=== PATIENT | female | born 1975 | race Caucasian/White ===

== ENCOUNTER 2019-08-18 07:02 | Inpatient (IN) | payer SELFPAY ==
[2019-08-18 10:11] LABS: APPEARANCE,URINE CLEAR; BILIRUBIN,URINE NEGATIVE (NEGATIVE); COLOR,URINE YELLOW; GLUCOSE, URINE NEGATIVE (NEGATIVE); KETONES,URINE 20 mg/dL (NEGATIVE); LEUKOCYTE ESTERASE,URINE TRACE (NEGATIVE); NITRITE,URINE NEGATIVE (NEGATIVE); PROTEIN,URINE NEGATIVE (NEGATIVE); URINE SPECIFIC GRAVITY 1.006; UROBILINOGEN,URINE NEGATIVE mg/dL (<2.0)
[2019-08-18 10:23] LABS: ABSOLUTE BASOPHILS # (AUTO) 0.1 10^3/uL (0.0-0.2); ABSOLUTE EOSINOPHILS # (AUTO) 0.1 10^3/uL (0.0-0.6); ABSOLUTE LYMPHOCYTES (AUTO) 1.1 10^3/uL (0.5-4.7); ABSOLUTE MONOCYTES (AUTO) 0.7 10^3/uL (0.1-1.4); ABSOLUTE NEUT (AUTO) 7.7 10^3/uL (1.7-8.2); EOSINOPHILS % (AUTO) 0.9 % (0-6); HEMATOCRIT 36.9 % (36.0-47.0); HEMOGLOBIN 13.1 g/dL (12.0-15.5); LYMPHOCYTES % (AUTO) 11.1 % (13-45); MEAN CORPUSCULAR HEMOGLOBIN 29.7 pg (27.0-33.4); MEAN CORPUSCULAR HGB CONC 35.6 g/dL (32.0-36.0); MEAN CORPUSCULAR VOLUME 83 fl (80-97); MONOCYTES % (AUTO) 7.5 % (3-13); PLATELET COUNT 227 10^3/uL (150-450); RED BLOOD COUNT 4.43 10^6/uL (3.72-5.28); RED CELL DISTRIBUTION WIDTH 14.9 % (11.5-14.0); SEGMENTED NEUTROPHILS % (AUTO) 79.5 % (42-78); TOTAL CELLS COUNTED % (AUTO) 100 %; WHITE BLOOD COUNT 9.7 10^3/uL (4.0-10.5)
[2019-08-18] MEDS ORDERED: KETOROLAC TROMETHAMINE INJ/PF 30 MG/1 ML SDV IV ONE (10:48)
[2019-08-18] MEDS ORDERED: VANCOMYCIN HCL INJ 1000 MG VIAL IV ONE (10:48)
[2019-08-18] MEDS ORDERED: PIPERACILLIN/TAZOBACTAM 3.375 GM VIAL IV ONE (10:48)
[2019-08-18 10:50] LABS: ALBUMIN 4.2 g/dL (3.5-5.0); ALKALINE PHOSPHATASE 87 U/L (38-126); ANION GAP 15 (5-19); ASPARTATE AMINO TRANSFERASE 44 U/L (14-36); BILIRUBIN,DIRECT 0.4 mg/dL (0.0-0.4); BILIRUBIN,TOTAL 1.1 mg/dL (0.2-1.3); BLOOD UREA NITROGEN 8 mg/dL (7-20); CALCIUM 9.1 mg/dL (8.4-10.2); CARBON DIOXIDE 19 mmol/L (22-30); CHLORIDE 102 mmol/L (98-107); GLUCOSE 99 mg/dL (75-110); POTASSIUM 3.6 mmol/L (3.6-5.0); TOTAL PROTEIN 7.5 g/dL (6.3-8.2)
--- NOTE | 2019-08-18 10:53 | ER Document Report ---
ED General - General Chief Complaint: Abscess Stated Complaint: POSSIBLE ARM ABSCESS Time Seen by Provider: 08/18/19 10:04 TRAVEL OUTSIDE OF THE [place] IN LAST 30 DAYS: No - HPI Notes: 43-year-old female IV drug abuser with a chief complaint of pain swelling and redness of antecubital area bilaterally where she has been injecting herself. Denies fever, chills nausea, or vomiting. Patient is visiting here from the state of [place] and has no local physician. States that she has been injecting IV cocaine. She denies any hallucinations or any suicidal or homicidal ideation. - Related Data Allergies/Adverse Reactions: tramadol [Tramadol] Allergy (Mild, Verified 08/18/19 07:37) Hives clindamycin [Clindamycin] Allergy (Verified 08/18/19 07:37) Home Medications: cymbalta 60 mg. latuda 30 mg. trazodone 100 mg Past Medical History - General Information source: Patient - Social History Smoking Status: Current Every Day Smoker Chew tobacco use (# tins/day): No Frequency of alcohol use: Social Drug Abuse: Cocaine Family History: Malignancy - ovarian cancer- mother Patient has suicidal ideation: No Patient has homicidal ideation: No - Past Medical History Cardiac Medical History: Reports: Hx Hypertension Psychiatric Medical History: Reports: Hx Bipolar Disorder, Hx Depression Past Surgical History: Reports: Hx Abdominal Surgery - gastric sleeve, Hx Gynecologic Surgery - Benign tumor removal from left overy, Hx Hysterectomy - complete, Hx Orthopedic Surgery - bilat carpal tunnel - Immunizations Hx Diphtheria, Pertussis, Tetanus Vaccination: Yes Review of Systems - Review of Systems Notes: Constitutional: Negative for fever. HENT: Negative for sore throat. Eyes: Negative for visual changes. Cardiovascular: Negative for chest pain. Respiratory: Negative for shortness of breath. Gastrointestinal: Negative for abdominal pain, vomiting or diarrhea. Genitourinary: Negative for dysuria. Musculoskeletal: Negative for back pain. Skin: As per HPI. Neurological: Negative for headaches, weakness or numbness. 10 point ROS negative except as marked above and in HPI. Physical Exam - Vital signs Vitals: Temp Pulse Resp BP Pulse Ox 99.1 F 91 18 164/96 H 99 08/18/19 07:07 08/18/19 07:07 08/18/19 07:07 08/18/19 07:07 08/18/19 07:07 - Notes Notes: GENERAL: Mildly obese female appearing approximately her stated age who is tearful and uncomfortable. She does not appear toxic. SKIN: Redness and warmth of antecubital area bilaterally. Patient also has an area of redness over the medial malleolus on the left. These are all injection sites. Patient has some needle tracks present.. HEAD: Normocephalic atraumatic. EYES: PERRLA. EOMI. Conjunctivae and sclerae clear. EARS: CANALS AND TMS CLEAR. NOSE: CLEAR. MOUTH: Moist mucosa. Good dentition. No stridor or edema. No drooling. NECK: Supple. No masses or thyromegaly. No adenopathy. Carotids 2+ without bruits. No JVD. BACK: Symmetrical without tenderness. CHEST: Respirations unlabored. Breath sounds clear and symmetrical. HEART: Regular rhythm. No murmur gallop or rub. ABDOMEN: Soft nontender without masses, organomegaly or rebound. Bowel sounds normally active. No bruits. GENITALIA: Deferred. EXTREMITIES: Soft tissue swelling in the antecubital fossa bilaterally with some associated warmth and questionable fluctuance.. No calf tenderness. Cap refill less than 1.5 seconds. Dorsalis pedis and posterior tibial pulses 3+ and symmetrical. NEUROLOGICAL: GCS 15. Alert and oriented x3. Normal gait. Fluent speech. Cranial nerves II through XII intact. Sensorimotor and cerebellar normal. Normal tone. PSYCHIATRIC: Anxious affect. Course - Re-evaluation Re-evalutation: 08/18/19 10:52 I am going to empirically administer IV vancomycin and Zosyn. I have requested plain films of the antecubital area bilaterally to rule out retained foreign body (broken needle). We will also get ultrasound of the area bilaterally to determine if there is something here that is drainable at this time. 08/18/19 14:33 Ultrasound confirms abscess formation bilaterally in the antecubital fossa. Patient does not have any foreign body present on plain films. Ultrasound also suggests that she may have a septic thrombophlebitis of the median cubital vein on the right. Patient has been accepted for admission to the hospitalist service by Dr. Meliton Marie. I have also consulted Dr. Hernandez from surgery regarding surgical drainage of abscess bilaterally and antecubital area. - Vital Signs Vital signs: Temp Pulse Resp BP Pulse Ox 99.1 F 91 18 164/96 H 99 08/18/19 07:07 08/18/19 07:07 08/18/19 07:07 08/18/19 07:07 08/18/19 07:07 - Laboratory Result Diagrams: 08/18/19 10:00 08/18/19 10:00 Laboratory results interpreted by me: 08/18/19 08/18/19 08/18/19 09:24 10:00 10:00 RDW 14.9 H Lymph % (Auto) 11.1 L Seg Neutrophils % 79.5 H Sodium 135.7 L Carbon Dioxide 19 L AST 44 H Urine Ketones 20 H Ur Leukocyte Esterase TRACE H - Diagnostic Test Radiology reviewed: Reports reviewed - Patient has bilateral abscess formation with free air in the tissue planes in the area of the bilateral antecubital fossae. She also has evidence of thrombosis of the median cubital vein on the right. Discharge - Discharge Clinical Impression: Antecubital abscess bilateral, IV drug abuse, Septic thrombophlebitis of upper extremities Condition: Serious Disposition: ADMITTED INPATIENT Admitting Provider: Frank (Hospitalist) Unit Admitted: Medical Floor
--- NOTE | 2019-08-18 12:07 | RADIOLOGY REPORT (SQ) ---
EXAM DESCRIPTION: ELBOW BILATERAL 2 VIEWS MIN COMPLETED DATE/TIME: 08/18/2019 10:27 am REASON FOR STUDY: pain/swelling; r/o FB COMPARISON: None. NUMBER OF VIEWS: Four views. TECHNIQUE: AP, lateral, and both oblique radiographic images acquired of the left elbow. LIMITATIONS: None. FINDINGS: MINERALIZATION: Normal. BONES: No acute fracture or dislocation. No worrisome bone lesions. JOINT: There is no joint effusion. SOFT TISSUES: There is subcutaneous gas in the antecubital fossa. No radiopaque foreign body. OTHER: No other significant finding. IMPRESSION: Subcutaneous gas in the antecubital fossa of the left elbow. No radiopaque foreign body . No radiographic abnormality of the elbow joint or bones. TECHNICAL DOCUMENTATION: JOB ID: [id number] [employer]- All Rights Reserved Reading location - IP/workstation name: [email or web address]
[2019-08-18 12:54] LABS: URINE BARBITURATES SCREEN NEGATIVE; URINE BENZODIAZEPINES SCREEN NEGATIVE; URINE METHADONE SCREEN NEGATIVE; URINE PHENCYCLIDINE SCREEN NEGATIVE
[2019-08-18 13:04] LABS: URINE COCAINE SCREEN UNCONFIRMED POSITIVE; URINE MARIJUANA (THC) SCREEN UNCONFIRMED POSITIVE
--- NOTE | 2019-08-18 13:19 | RADIOLOGY REPORT (SQ) ---
EXAM DESCRIPTION: U/S EXTREMITY NONVASCULAR LTD COMPLETED DATE/TIME: 08/18/2019 1:00 pm REASON FOR STUDY: pain, swelling- r/o abscess bilateral COMPARISON: None. TECHNIQUE: Static and real time masters scale ultrasound Doppler spectral analysis, and color Doppler a cquired in the RIGHT AND LEFT ANTECUBITAL FOSSA LIMITATIONS: None. FINDINGS: In the right antecubital fossa, a 3.4 x 3.3 x 1.5 cm abscess is present with air bubbles j ust deep to the skin surface. This is adjacent to a thrombosed median cubital vein. Septic thrombop hlebitis is suspected. In the left antecubital fossa, a 2.8 x 2.5 x 3 cm abscess is present with few air bubbles deep to the skin surface. Median cubital vein was not identified. IMPRESSION: Bilateral antecubital fossa abscesses with air bubbles TECHNICAL DOCUMENTATION: JOB ID: [id number] [employer]- All Rights Reserved Reading location - IP/workstation name: [email or web address]
[2019-08-18] MEDS ORDERED: KETOROLAC TROMETHAMINE INJ/PF 30 MG/1 ML SDV IV PRN (15:01)
[2019-08-18] MEDS ORDERED: VANCOMYCIN HCL 0 MG in DEXTROSE 5%-WATER 250 ML IV NR (15:15)
[2019-08-18] MEDS ORDERED: NORMAL SALINE 1000 ML 2,000 ML IV ONE (15:22)
--- NOTE | 2019-08-18 15:59 | PDOC H&P ---
History of Present Illness Admission Date/PCP: 08/18/19 15:06 Patient complains of: Bilateral elbow pain with swelling and right ankle redness and swelling History of Present Illness: DANII SHEIKH is a 43 year old female, morbidly obese, with a history of marshal jeanette abuse, who presents emergency room with bilateral antecubital fossa swelling and redness with pain as well as right medial ankle redness swelling and pain. The patient has undergone an ultrasound of both antecubital fossa which identified the presence of bilateral abscess with air bubbles as well as an x-ray of the left elbow which demonstrates the presence of subcutaneous gas. Her white blood cell count is normal. Past Medical History Cardiac Medical History: Reports: Hypertension Psychiatric Medical History: Reports: Bipolar Disorder, Depression Past Surgical History Past Surgical History: Reports: Hysterectomy - complete, Orthopedic Surgery - bilat carpal tunnel Social History Smoking Status: Current Every Day Smoker Electronic Cigarette use?: No Family History Family History: Malignancy - ovarian cancer- mother Parental Family History Reviewed: No Children Family History Reviewed: No Sibling(s) Family History Reviewed.: No Medication/Allergy Home Medications: Duloxetine HCl [Cymbalta] 60 mg PO DAILY 08/18/19 Lurasidone HCl [Latuda] 30 mg PO DAILY 08/18/19 Trazodone HCl 100 mg PO QHS 08/18/19 Allergies/Adverse Reactions: tramadol [Tramadol] Allergy (Mild, Verified 08/18/19 07:37) Hives clindamycin [Clindamycin] Allergy (Verified 08/18/19 07:37) Physical Exam Vital Signs: Temp Pulse Resp BP Pulse Ox 99.1 F 91 18 164/96 H 99 08/18/19 07:07 08/18/19 07:07 08/18/19 07:07 08/18/19 07:07 08/18/19 07:07 Intake & Output 08/17/19 08/18/19 08/19/19 06:59 06:59 06:59 Weight 107.6 kg General appearance: PRESENT: mild distress, obese Head exam: PRESENT: atraumatic, normocephalic Eye exam: PRESENT: EOMI Mouth exam: PRESENT: moist, neck supple Neck exam: PRESENT: full ROM Cardiovascular exam: PRESENT: RRR GI/Abdominal exam: PRESENT: soft Rectal exam: PRESENT: deferred Extremities exam: PRESENT: full ROM, other - Erythema, swelling, subcutaneous fluctuation, and tenderness on palpation identified on both antecubital fossa; right medial malleolar area continues erythema with tenderness to palpation Musculoskeletal exam: PRESENT: ambulatory, full ROM Neurological exam: PRESENT: alert, awake, oriented to time, CN II-XII grossly intact Psychiatric exam: PRESENT: agitated, depressed Skin exam: PRESENT: other - See above Results Laboratory Results: 08/18/19 10:00 08/18/19 10:00 08/18/19 08/18/19 08/18/19 09:24 10:00 10:00 WBC 9.7 RBC 4.43 Hgb 13.1 Hct 36.9 MCV 83 MCH 29.7 MCHC 35.6 RDW 14.9 H Plt Count 227 Seg Neutrophils % 79.5 H Sodium 135.7 L Potassium 3.6 Chloride 102 Carbon Dioxide 19 L Anion Gap 15 BUN 8 Creatinine 0.71 Est GFR ( Amer) > 60 Glucose 99 Calcium 9.1 Total Bilirubin 1.1 AST 44 H Alkaline Phosphatase 87 Total Protein 7.5 Albumin 4.2 Urine Color YELLOW Urine Appearance CLEAR Urine pH 6.0 Ur Specific [place] 1.006 Urine Protein NEGATIVE Urine Glucose (UA) NEGATIVE Urine Ketones 20 H Urine Blood NEGATIVE Urine Nitrite NEGATIVE Ur Leukocyte Esterase TRACE H Urine WBC (Auto) 5 Urine RBC (Auto) 2 Impressions: Elbow X-Ray 08/18/19 10:44 IMPRESSION: Subcutaneous gas in the antecubital fossa of the left elbow. No radiopaque foreign body. No radiographic abnormality of the elbow joint or bones. Extremity Ultrasound 08/18/19 10:45 IMPRESSION: Bilateral antecubital fossa abscesses with air bubbles Assessment & Plan - Diagnosis (1) bilateral antecubital fossa abscess Is this a current diagnosis for this admission?: Yes (2) R medail malleolar subcutaneous abscess Is this a current diagnosis for this admission?: Yes - Plan Summary Plan Summary: Assessment: History of IV drug abuse (cocaine) Bilateral antecubital fossa abscesses with subcutaneous gas as per ultrasound and x-ray Bilateral tubal fossa erythema, edema, and pain with subcutaneous fluctuation history of subcutaneous abscess Right malleolar cellulitis, tenderness, possible abscess WBC normal Plan: Incision and drainage of bilateral antecubital fossa abscess as well as right medial malleolar subcutaneous abscess Procedure, risks, benefits, complications, alternatives, discussed with the patient, she understands all the above, her questions were answered, and she decides to proceed Vancomycin and Zosyn IV antibiotics preop Admission to follow
[2019-08-18] MEDS ORDERED: METHYLENE BLUE 50 MG/10 ML AMPULE ONE (16:05)
[2019-08-18] MEDS ORDERED: DEXTROSE 50%-WATER 25 GM/50 ML DISP.SYRIN IV PRN ×4 (16:55→19:08)
[2019-08-18] MEDS ORDERED: GLUCAGON,HUMAN RECOMB 1 MG INJ SUBCUT PRN ×2 (16:55→19:08)
[2019-08-18] MEDS ORDERED: DEXTROSE 40% GEL 15 GM TUBE PO PRN ×4 (16:55→19:08)
[2019-08-18] MEDS: ACETAMINOPHEN 1,000 MG/100 ML RTUPB IV SCH ×2 (17:41→23:23)
--- NOTE | 2019-08-18 18:01 | PDOC H&P ---
History of Present Illness Admission Date/PCP: 08/18/19 15:06 History of Present Illness: DANII SHEIKH is a 43 year old female with a history of IV drug use who is from [place] and is here for some reason, and has been injecting cocaine. She injects in both antecubital spaces, her hands, her ankles and her feet. She noticed a swelling that started yesterday and her left arm and again today in her right arm. She has an area of redness on the right ankle but is not swollen. She is not been running a fever. She came to the emergency department to be evaluated and ultrasound confirmed that she has bilateral antecubital abscesses, and it also looks like she is got a superficial thrombosis in the median cubital vein on the right side. She will be started on antibiotics and surgery will be consulted. Past Medical History Cardiac Medical History: Reports: Hypertension Psychiatric Medical History: Reports: Bipolar Disorder, Depression Past Surgical History Past Surgical History: Reports: Hysterectomy - complete, Orthopedic Surgery - bilat carpal tunnel Social History Smoking Status: Current Every Day Smoker Electronic Cigarette use?: No Family History Family History: Malignancy - ovarian cancer- mother Parental Family History Reviewed: Yes Children Family History Reviewed: NA Sibling(s) Family History Reviewed.: Yes Medication/Allergy Home Medications: Duloxetine HCl [Cymbalta] 60 mg PO DAILY 08/18/19 Lurasidone HCl [Latuda] 30 mg PO DAILY 08/18/19 Trazodone HCl 100 mg PO QHS 08/18/19 Allergies/Adverse Reactions: tramadol [Tramadol] Allergy (Mild, Verified 08/18/19 07:37) Hives clindamycin [Clindamycin] Allergy (Verified 08/18/19 07:37) Review of Systems All systems: reviewed and no additional remarkable complaints except as stated - All systems were reviewed and were negative except as noted in the HPI Physical Exam Vital Signs: Temp Pulse Resp BP Pulse Ox 98.8 F 84 18 145/81 H 99 08/18/19 16:09 08/18/19 16:09 08/18/19 16:09 08/18/19 16:09 08/18/19 16:09 Intake & Output 08/17/19 08/18/19 08/19/19 06:59 06:59 06:59 Weight 107.6 kg General appearance: PRESENT: no acute distress, cooperative, disheveled, morbidly obese Head exam: PRESENT: atraumatic, normocephalic Eye exam: PRESENT: EOMI, PERRLA. ABSENT: conjunctival injection, nystagmus, scleral icterus Ear exam: PRESENT: normal external ear exam Mouth exam: PRESENT: moist, neck supple Throat exam: ABSENT: post pharyngeal erythema Neck exam: PRESENT: full ROM. ABSENT: carotid bruit, JVD, lymphadenopathy, m eningismus, tenderness, thyromegaly Respiratory exam: PRESENT: clear to auscultation truman, symmetrical, unlabored. ABSENT: accessory muscle use, chest wall tenderness, crackles, prolonged expiratory phas, rales, retraction, rhonchi, tachypnea, wheezes Cardiovascular exam: PRESENT: RRR, +S1, +S2 Pulses: PRESENT: normal carotid pulses Vascular exam: PRESENT: normal capillary refill GI/Abdominal exam: PRESENT: normal bowel sounds, soft. ABSENT: distended, guarding, rebound, tenderness Extremities exam: PRESENT: other - She has pronounced areas of swelling and induration in the antecubital spaces of both elbows with an area of central erythema. She has track prasad in both antecubital spaces, the backs of both of her hands, on both ankles medially, and on the dorsal aspect of both feet Musculoskeletal exam: PRESENT: normal inspection. ABSENT: deformity Neurological exam: PRESENT: alert, awake, oriented to person, oriented to place, oriented to time, oriented to situation, CN II-XII grossly intact. ABSENT: motor sensory deficit Psychiatric exam: PRESENT: anxious Skin exam: PRESENT: dry, warm Results Laboratory Results: 08/18/19 10:00 08/18/19 10:00 08/18/19 08/18/19 08/18/19 09:24 10:00 10:00 WBC 9.7 RBC 4.43 Hgb 13.1 Hct 36.9 MCV 83 MCH 29.7 MCHC 35.6 RDW 14.9 H Plt Count 227 Seg Neutrophils % 79.5 H Sodium 135.7 L Potassium 3.6 Chloride 102 Carbon Dioxide 19 L Anion Gap 15 BUN 8 Creatinine 0.71 Est GFR ( Amer) > 60 Glucose 99 Calcium 9.1 Total Bilirubin 1.1 AST 44 H Alkaline Phosphatase 87 Total Protein 7.5 Albumin 4.2 Urine Color YELLOW Urine Appearance CLEAR Urine pH 6.0 Ur Specific [place] 1.006 Urine Protein NEGATIVE Urine Glucose (UA) NEGATIVE Urine Ketones 20 H Urine Blood NEGATIVE Urine Nitrite NEGATIVE Ur Leukocyte Esterase TRACE H Urine WBC (Auto) 5 Urine RBC (Auto) 2 Impressions: Elbow X-Ray 08/18/19 10:44 IMPRESSION: Subcutaneous gas in the antecubital fossa of the left elbow. No radiopaque foreign body. No radiographic abnormality of the elbow joint or bones. Extremity Ultrasound 08/18/19 10:45 IMPRESSION: Bilateral antecubital fossa abscesses with air bubbles Assessment and Plan - Diagnosis (1) IVDU (intravenous drug user) Is this a current diagnosis for this admission?: Yes (2) bilateral antecubital fossa abscess Is this a current diagnosis for this admission?: Yes (3) Superficial thrombophlebitis of right upper extremity Is this a current diagnosis for this admission?: Yes - Plan Summary Summary: She is being started on broad-spectrum antibiotic therapy. Blood cultures are pending. If they are positive, she will have to have a transesophageal echocard iogram. Surgery has been consulted for incision and drainage and obtaining of fluid for cultures. - Time Time Spent with patient: 35 or more minutes - Inpatient Certification Based on my medical assessment, after consideration of the patient's comorbidities, presenting symptoms, or acuity I expect that the services needed warrant INPATIENT care.: Yes I certify that my determination is in accordance with my understanding of Medicare's requirements for reasonable and necessary INPATIENT services [42 CFR 412.3e].: Yes Medical Necessity: Need for IV Antibiotics, Need for Surgery
[2019-08-18] MEDS: NORMAL SALINE 1000 ML 1,000 ML IV PRN (19:01)
[2019-08-18] MEDS: VANCOMYCIN HCL 1,250 MG in DEXTROSE 5%-WATER 250 ML IV SCH (19:02)
--- NOTE | 2019-08-18 19:37 | EKG REPORT ---
SEVERITY:- ABNORMAL ECG - SINUS RHYTHM PROBABLE POSTERIOR INFARCT : Confirmed by: Deb Bucio MD 18-Aug-2019 19:36:11
[2019-08-18] MEDS ORDERED: LURASIDONE HCL 30 MG PO SCH (22:00)
[2019-08-18] MEDS: MEROPENEM 1 GM in NORMAL SALINE 50 ML IV SCH (22:05)
[2019-08-18] MEDS: TRAZODONE HCL 50 MG TABLET PO SCH (22:08)
[2019-08-18] MEDS: DULOXETINE HCL 30 MG CAPSULE.DR PO SCH (22:08)
[2019-08-18] MEDS: LURASIDONE HCL 60 MG TABLET PO SCH (22:08)
[2019-08-19] MEDS: VANCOMYCIN HCL 1,250 MG in DEXTROSE 5%-WATER 250 ML IV SCH ×3 (01:06→17:47)
[2019-08-19] MEDS: ACETAMINOPHEN 1,000 MG/100 ML RTUPB IV SCH ×4 (05:24→23:15)
[2019-08-19] MEDS: MEROPENEM 1 GM in NORMAL SALINE 50 ML IV SCH ×3 (05:33→21:49)
[2019-08-19 05:56] LABS: HEMATOCRIT 36.3 % (36.0-47.0); HEMOGLOBIN 12.8 g/dL (12.0-15.5); MEAN CORPUSCULAR HGB CONC 35.4 g/dL (32.0-36.0); MEAN CORPUSCULAR VOLUME 85 fl (80-97); RED BLOOD COUNT 4.29 10^6/uL (3.72-5.28); RED CELL DISTRIBUTION WIDTH 14.9 % (11.5-14.0); WHITE BLOOD COUNT 12.3 10^3/uL (4.0-10.5)
[2019-08-19 06:14] LABS: ANION GAP 12 (5-19); BLOOD UREA NITROGEN 9 mg/dL (7-20); CALCIUM 8.7 mg/dL (8.4-10.2); CARBON DIOXIDE 21 mmol/L (22-30); CHLORIDE 105 mmol/L (98-107); GLUCOSE 105 mg/dL (75-110); POTASSIUM 3.5 mmol/L (3.6-5.0)
[2019-08-19 06:56] LABS: PLATELET COUNT 195 10^3/uL (150-450)
[2019-08-19] MEDS: NORMAL SALINE 1000 ML 1,000 ML IV PRN ×2 (09:48→21:49)
--- NOTE | 2019-08-19 16:15 | PDOC PROGRESS REPORT ---
Subjective Progress Note for:: 08/19/19 Subjective:: No adverse events overnight. No new complaints. Vital signs been stable. Blood cultures are negative overnight. She is n.p.o. awaiting incision and drainage of her bilateral antecubital abscesses. Reason For Visit: BILATERAL ANTECUBITAL ABSCESSES Physical Exam Vital Signs: Temp Pulse Resp BP Pulse Ox 98.1 F 77 20 111/71 97 08/19/19 12:00 08/19/19 12:00 08/19/19 12:00 08/19/19 12:00 08/19/19 12:00 Intake & Output 08/18/19 08/19/19 08/20/19 06:59 06:59 06:59 Intake Total 3976 727 Balance 3976 727 Weight 101.2 kg General appearance: PRESENT: no acute distress, cooperative, disheveled, morbidly obese Respiratory exam: PRESENT: clear to auscultation truman, symmetrical, unlabored. ABSENT: accessory muscle use, chest wall tenderness, crackles, prolonged expiratory phas, rales, retraction, rhonchi, tachypnea, wheezes Cardiovascular exam: PRESENT: RRR, +S1, +S2 Pulses: PRESENT: normal carotid pulses Vascular exam: PRESENT: normal capillary refill GI/Abdominal exam: PRESENT: normal bowel sounds, soft. ABSENT: distended, guarding, rebound, tenderness Extremities exam: PRESENT: other - She has pronounced areas of swelling and induration in the antecubital spaces of both elbows with an area of central erythema. She has track prasad in both antecubital spaces, the backs of both of her hands, on both ankles medially, and on the dorsal aspect of both feet Musculoskeletal exam: PRESENT: normal inspection. ABSENT: deformity Neurological exam: PRESENT: alert, awake, oriented to person, oriented to place, oriented to time, oriented to situation Results Laboratory Results: 08/19/19 05:21 08/19/19 05:21 08/19/19 08/19/19 05:21 05:21 WBC 12.3 H RBC 4.29 Hgb 12.8 Hct 36.3 MCV 85 MCH 30.0 MCHC 35.4 RDW 14.9 H Plt Count 195 Sodium 137.6 Potassium 3.5 L Chloride 105 Carbon Dioxide 21 L Anion Gap 12 BUN 9 Creatinine 0.68 Est GFR ( Amer) > 60 Glucose 105 Calcium 8.7 Impressions: Elbow X-Ray 08/18/19 10:44 IMPRESSION: Subcutaneous gas in the antecubital fossa of the left elbow. No radiopaque foreign body. No radiographic abnormality of the elbow joint or bones. Extremity Ultrasound 08/18/19 10:45 IMPRESSION: Bilateral antecubital fossa abscesses with air bubbles Assessment and Plan - Diagnosis (1) IVDU (intravenous drug user) Is this a current diagnosis for this admission?: Yes (2) bilateral antecubital fossa abscess Is this a current diagnosis for this admission?: Yes (3) Superficial thrombophlebitis of right upper extremity Is this a current diagnosis for this admission?: Yes - Plan Summary Summary: She continues on broad-spectrum antibiotic therapy. Blood cultures are pending. If they are positive, she will have to have a transesophageal echocardiogram. Surgery has been consulted for incision and drainage and obtaining of fluid for cultures. - Time Time Spent with patient: 15-24 minutes
[2019-08-19] MEDS ORDERED: PROPOFOL INJ 200 MG/20 ML VIAL IV ONE (18:04)
[2019-08-19] MEDS ORDERED: FENTANYL CITRATE INJ/PF 100 MCG/2 ML AMPUL ONE (18:04)
[2019-08-19] MEDS ORDERED: MIDAZOLAM 2 MG/2 ML INJ ONE (18:04)
[2019-08-19] MEDS ORDERED: BUPIVACAINE HCL 0.5%/EPI 1:200000 INJ 1.8 ML CARTRIDGE ONE (18:47)
[2019-08-19] MEDS ORDERED: LIDOCAINE 1% INJ-PF (10 MG/ML) 30 ML SDV ONE (18:47)
[2019-08-19] MEDS ORDERED: BUPIVACAINE HCL 0.5%-EPI 1:200000 INJ/PF 30 ML VIAL ONE (18:48)
[2019-08-19] MEDS ORDERED: LIDOCAINE 1%/EPINEPHRINE INJ 20 ML VIAL ONE (18:49)
[2019-08-19] MEDS ORDERED: BACITRACIN ZINC OINTMENT 15 GM ONE (19:01)
[2019-08-19 19:08] LABS: VANCOMYCIN,TROUGH 9.2 ug/mL (5.0-20.0)
--- NOTE | 2019-08-19 19:51 | Operative Report ---
Nonrecallable Operative Report DATE OF SURGERY: 08/19/19 PREOPERATIVE DIAGNOSIS: Right and left anterior antecubital fossa abscess, right medial malleolar abscess with cellulitis POSTOPERATIVE DIAGNOSIS: Right and left antecubital fossa abscess; right medial malleolar cellulitis OPERATION: Incision and drainage of right and left antecubital fossa; attempted drainage of right medial malleolar area SURGEON: JAK BALL ANESTHESIA: Other - 30 mL's of 1% lidocaine TISSUE REMOVED OR ALTERED: Pus collection of the right and left antecubital fossa abscess COMPLICATIONS: None ESTIMATED BLOOD LOSS: Less than 5 mL's INTRAOPERATIVE FINDINGS: Abscess cavity located in the right and left antecubital area; cellulitis of the right / medial malleolus PROCEDURE: The procedure was done in the operating room, the patient was placed in a supine position, the area of each abscess was prepped and draped in usual fashion. The proposed line of incision was outlined with a surgical marker, an S shaped skin incision was then made with a #15 blade, over each antecubital fossa and a moderate amount of pus was obtained. This was sent for aerobic anaerobic culture and Gram stain. The incision was then extended further. After this, a finger or hempostat was inserted inside each wound and the internal septations were disrupted so to make one single cavity. Following this, the abscess cavity was irrigated with normal saline. Local bleeders were cauterized. The abscess cavity was packed with triple antibiotic soaked sponge, covered with dry 4 x 4's, ABDs, Kerlix roll, and Lakhwinder bandage. Finally, a vertical incision was made to the right medial malleoli are, no purulent collection was identified, the area was packed and dressed similarly to the antecubital areas. The patient tolerated procedure well and transferred to the recovery room in satisfactory conditions.
[2019-08-19] MEDS: LURASIDONE HCL 60 MG TABLET PO SCH (21:45)
[2019-08-19] MEDS: DULOXETINE HCL 30 MG CAPSULE.DR PO SCH (21:45)
[2019-08-19] MEDS: TRAZODONE HCL 50 MG TABLET PO SCH (21:45)
[2019-08-20] MEDS: VANCOMYCIN HCL 1,250 MG in DEXTROSE 5%-WATER 250 ML IV SCH ×3 (01:28→18:05)
[2019-08-20] MEDS: ACETAMINOPHEN 1,000 MG/100 ML RTUPB IV SCH ×4 (05:44→23:28)
[2019-08-20] MEDS: MORPHINE SULFATE 10 MG/ML INJ IV PRN ×4 (05:49→19:31)
[2019-08-20 06:15] LABS: HEMATOCRIT 34.1 % (36.0-47.0); HEMOGLOBIN 11.9 g/dL (12.0-15.5); MEAN CORPUSCULAR HEMOGLOBIN 29.9 pg (27.0-33.4); MEAN CORPUSCULAR VOLUME 86 fl (80-97); PLATELET COUNT 195 10^3/uL (150-450); RED BLOOD COUNT 3.98 10^6/uL (3.72-5.28); RED CELL DISTRIBUTION WIDTH 15.3 % (11.5-14.0); WHITE BLOOD COUNT 7.3 10^3/uL (4.0-10.5)
[2019-08-20 06:39] LABS: ANION GAP 8 (5-19); BLOOD UREA NITROGEN 7 mg/dL (7-20); CALCIUM 8.3 mg/dL (8.4-10.2); CARBON DIOXIDE 24 mmol/L (22-30); CHLORIDE 107 mmol/L (98-107); GLUCOSE 91 mg/dL (75-110); POTASSIUM 3.7 mmol/L (3.6-5.0)
[2019-08-20] MEDS: MEROPENEM 1 GM in NORMAL SALINE 50 ML IV SCH ×3 (06:48→21:25)
[2019-08-20] MEDS: NORMAL SALINE 1000 ML 1,000 ML IV PRN ×2 (06:49→18:06)
[2019-08-20] MEDS ORDERED: BACITRACIN ZINC OINTMENT 15 GM TP SCH (10:00)
--- NOTE | 2019-08-20 12:12 | PDOC PROGRESS REPORT ---
Subjective Progress Note for:: 08/20/19 Subjective:: feels better Reason For Visit: BILATERAL ANTECUBITAL ABSCESSES Physical Exam Vital Signs: Temp Pulse Resp BP Pulse Ox 98.2 F 63 16 147/65 H 92 08/20/19 07:19 08/20/19 07:19 08/20/19 07:19 08/20/19 07:19 08/20/19 07:19 Intake & Output 08/19/19 08/20/19 08/21/19 06:59 06:59 06:59 Intake Total 3976 4839 50 Output Total 0 Balance 3976 4839 50 Weight 101.2 kg 109.5 kg General appearance: PRESENT: no acute distress Head exam: PRESENT: normocephalic Eye exam: PRESENT: EOMI Ear exam: PRESENT: normal external ear exam Mouth exam: PRESENT: dry mucosa Teeth exam: PRESENT: poor dentation Neck exam: PRESENT: full ROM Respiratory exam: PRESENT: clear to auscultation truman Cardiovascular exam: PRESENT: RRR Pulses: PRESENT: normal radial pulses, normal femoral pulses GI/Abdominal exam: PRESENT: soft Rectal exam: PRESENT: deferred Extremities exam: PRESENT: other - Both the right and left antecubital fossa h ave been surgically debrided the wound beds are clean with granulation tissue there is no evidence of any further purulence or necrosis Results Laboratory Results: 08/20/19 05:08 08/20/19 05:08 08/20/19 08/20/19 05:08 05:08 WBC 7.3 RBC 3.98 Hgb 11.9 L Hct 34.1 L MCV 86 MCH 29.9 MCHC 35.0 RDW 15.3 H Plt Count 195 Sodium 139.2 Potassium 3.7 Chloride 107 Carbon Dioxide 24 Anion Gap 8 BUN 7 Creatinine 0.64 Est GFR ( Amer) > 60 Glucose 91 Calcium 8.3 L Impressions: Elbow X-Ray 08/18/19 10:44 IMPRESSION: Subcutaneous gas in the antecubital fossa of the left elbow. No radiopaque foreign body. No radiographic abnormality of the elbow joint or bones. Extremity Ultrasound 08/18/19 10:45 IMPRESSION: Bilateral antecubital fossa abscesses with air bubbles Assessment & Plan - Time Time Spent with patient: 35 or more minutes - Plan Summary Plan Summary: Impression both antecubital abscesses are been drained and no further evidence of pus The right malleolus abscess is also clean with no evidence of purulent drainage. Recommend wet-to-dry dressing changes. Patient can follow-up in surgical clinic upon discharge. Please reconsult surgery in the hospital if necessary
--- NOTE | 2019-08-20 16:46 | PDOC PROGRESS REPORT ---
Subjective Progress Note for:: 08/20/19 Subjective:: No adverse events overnight. No new complaints. Vital signs been stable. No fevers. Blood cultures remain negative. Appetite is good. Reason For Visit: BILATERAL ANTECUBITAL ABSCESSES Physical Exam Vital Signs: Temp Pulse Resp BP Pulse Ox 98.3 F 68 16 142/62 H 95 08/20/19 15:24 08/20/19 15:24 08/20/19 15:24 08/20/19 15:24 08/20/19 15:24 Intake & Output 08/19/19 08/20/19 08/21/19 06:59 06:59 06:59 Intake Total 3976 4839 170 Output Total 0 Balance 3976 4839 170 Weight 101.2 kg 109.5 kg General appearance: PRESENT: no acute distress, cooperative, disheveled, morbidly obese Respiratory exam: PRESENT: clear to auscultation truman, symmetrical, unlabored. ABSENT: accessory muscle use, chest wall tenderness, crackles, prolonged expiratory phas, rales, retraction, rhonchi, tachypnea, wheezes Cardiovascular exam: PRESENT: RRR, +S1, +S2 Pulses: PRESENT: normal carotid pulses Vascular exam: PRESENT: normal capillary refill GI/Abdominal exam: PRESENT: normal bowel sounds, soft. ABSENT: distended, guarding, rebound, tenderness Extremities exam: PRESENT: other - She has bandages wrapped in Kerlix over the areas of the antecubital spaces that have undergone incision and drainage Musculoskeletal exam: PRESENT: normal inspection. ABSENT: deformity Neurological exam: PRESENT: alert, awake, oriented to person, oriented to place, oriented to time, oriented to situation Results Laboratory Results: 08/20/19 05:08 08/20/19 05:08 08/20/19 08/20/19 05:08 05:08 WBC 7.3 RBC 3.98 Hgb 11.9 L Hct 34.1 L MCV 86 MCH 29.9 MCHC 35.0 RDW 15.3 H Plt Count 195 Sodium 139.2 Potassium 3.7 Chloride 107 Carbon Dioxide 24 Anion Gap 8 BUN 7 Creatinine 0.64 Est GFR ( Amer) > 60 Glucose 91 Calcium 8.3 L Impressions: Elbow X-Ray 08/18/19 10:44 IMPRESSION: Subcutaneous gas in the antecubital fossa of the left elbow. No radiopaque foreign body. No radiographic abnormality of the elbow joint or bones. Extremity Ultrasound 08/18/19 10:45 IMPRESSION: Bilateral antecubital fossa abscesses with air bubbles Assessment and Plan - Diagnosis (1) IVDU (intravenous drug user) Is this a current diagnosis for this admission?: Yes (2) bilateral antecubital fossa abscess Is this a current diagnosis for this admission?: Yes (3) Superficial thrombophlebitis of right upper extremity Is this a current diagnosis for this admission?: Yes - Plan Summary Summary: She continues on broad-spectrum antibiotic therapy. Blood cultures are pending. If they are positive, she will have to have a transesophageal echocardiogram. She underwent incision and drainage of the antecubital abscesses, and they are growing beta-hemolytic Streptococcus with [place] antigen group C. - Time Time Spent with patient: 15-24 minutes
[2019-08-20] MEDS: LURASIDONE HCL 60 MG TABLET PO SCH (21:23)
[2019-08-20] MEDS: DULOXETINE HCL 30 MG CAPSULE.DR PO SCH (21:23)
[2019-08-20] MEDS: TRAZODONE HCL 50 MG TABLET PO SCH (21:23)
[2019-08-21] MEDS: VANCOMYCIN HCL 1,250 MG in DEXTROSE 5%-WATER 250 ML IV SCH ×3 (02:19→17:28)
[2019-08-21] MEDS: MEROPENEM 1 GM in NORMAL SALINE 50 ML IV SCH ×3 (05:50→22:48)
[2019-08-21] MEDS: MORPHINE SULFATE 10 MG/ML INJ IV PRN ×5 (05:50→23:10)
[2019-08-21 06:10] LABS: HEMATOCRIT 34.1 % (36.0-47.0); HEMOGLOBIN 11.9 g/dL (12.0-15.5); MEAN CORPUSCULAR HEMOGLOBIN 29.9 pg (27.0-33.4); MEAN CORPUSCULAR HGB CONC 34.8 g/dL (32.0-36.0); MEAN CORPUSCULAR VOLUME 86 fl (80-97); PLATELET COUNT 186 10^3/uL (150-450); RED BLOOD COUNT 3.97 10^6/uL (3.72-5.28); WHITE BLOOD COUNT 6.6 10^3/uL (4.0-10.5)
[2019-08-21 06:38] LABS: BLOOD UREA NITROGEN 5 mg/dL (7-20); CALCIUM 8.3 mg/dL (8.4-10.2); CARBON DIOXIDE 27 mmol/L (22-30); GLUCOSE 85 mg/dL (75-110); POTASSIUM 3.8 mmol/L (3.6-5.0)
[2019-08-21 06:45] LABS: CHLORIDE 107 mmol/L (98-107)
[2019-08-21 06:48] LABS: ANION GAP 5 (5-19)
[2019-08-21] MEDS: ACETAMINOPHEN 1,000 MG/100 ML RTUPB IV SCH ×2 (09:09→13:54)
--- NOTE | 2019-08-21 14:00 | PDOC PROGRESS REPORT ---
Subjective Progress Note for:: 08/21/19 Subjective:: No adverse events overnight. No new complaints. Vital signs been stable. No fevers. Blood cultures remain negative. Appetite is good. Reason For Visit: BILATERAL ANTECUBITAL ABSCESSES Physical Exam Vital Signs: Temp Pulse Resp BP Pulse Ox 97.9 F 65 16 153/70 H 97 08/21/19 11:51 08/21/19 11:51 08/21/19 11:51 08/21/19 11:51 08/21/19 11:51 Intake & Output 08/20/19 08/21/19 08/22/19 06:59 06:59 06:59 Intake Total 4839 2680 220 Output Total 0 Balance 4839 2680 220 Weight 109.5 kg 114.6 kg General appearance: PRESENT: no acute distress, cooperative, disheveled, morbidly obese Respiratory exam: PRESENT: clear to auscultation truman, symmetrical, unlabored. ABSENT: accessory muscle use, chest wall tenderness, crackles, prolonged expiratory phas, rales, retraction, rhonchi, tachypnea, wheezes Cardiovascular exam: PRESENT: RRR, +S1, +S2 Pulses: PRESENT: normal carotid pulses Vascular exam: PRESENT: normal capillary refill GI/Abdominal exam: PRESENT: normal bowel sounds, soft. ABSENT: distended, guarding, rebound, tenderness Extremities exam: PRESENT: other - She has bandages wrapped in Kerlix over the areas of the antecubital spaces that have undergone incision and drainage Musculoskeletal exam: PRESENT: normal inspection. ABSENT: deformity Neurological exam: PRESENT: alert, awake, oriented to person, oriented to place, oriented to time, oriented to situation Results Laboratory Results: 08/21/19 05:09 08/21/19 05:09 08/21/19 08/21/19 05:09 05:09 WBC 6.6 RBC 3.97 Hgb 11.9 L Hct 34.1 L MCV 86 MCH 29.9 MCHC 34.8 RDW 15.0 H Plt Count 186 Sodium 138.8 Potassium 3.8 Chloride 107 Carbon Dioxide 27 Anion Gap 5 BUN 5 L Creatinine 0.67 Est GFR ( Amer) > 60 Glucose 85 Calcium 8.3 L Impressions: Elbow X-Ray 08/18/19 10:44 IMPRESSION: Subcutaneous gas in the antecubital fossa of the left elbow. No radiopaque foreign body. No radiographic abnormality of the elbow joint or bones. Extremity Ultrasound 08/18/19 10:45 IMPRESSION: Bilateral antecubital fossa abscesses with air bubbles Assessment and Plan - Diagnosis (1) IVDU (intravenous drug user) Is this a current diagnosis for this admission?: Yes (2) bilateral antecubital fossa abscess Is this a current diagnosis for this admission?: Yes (3) Superficial thrombophlebitis of right upper extremity Is this a current diagnosis for this admission?: Yes - Plan Summary Summary: She continues on broad-spectrum antibiotic therapy. Blood cultures are pending. If they are positive, she will have to have a transesophageal echocardiogram. She underwent incision and drainage of the antecubital abscesses, and they are growing beta-hemolytic Streptococcus with [place] antigen group C. - Time Time Spent with patient: 15-24 minutes
[2019-08-21] MEDS: LURASIDONE HCL 60 MG TABLET PO SCH (22:48)
[2019-08-21] MEDS: TRAZODONE HCL 50 MG TABLET PO SCH (22:49)
[2019-08-21] MEDS: DULOXETINE HCL 30 MG CAPSULE.DR PO SCH (22:49)
[2019-08-22] MEDS: VANCOMYCIN HCL 1,250 MG in DEXTROSE 5%-WATER 250 ML IV SCH ×3 (02:26→18:10)
[2019-08-22] MEDS: NORMAL SALINE 1000 ML 1,000 ML IV PRN (03:00)
[2019-08-22] MEDS: MORPHINE SULFATE 10 MG/ML INJ IV PRN ×5 (05:46→22:55)
[2019-08-22] MEDS: MEROPENEM 1 GM in NORMAL SALINE 50 ML IV SCH ×3 (05:47→21:35)
[2019-08-22] MEDS ORDERED: LISINOPRIL 10 MG TABLET PO ONE (10:30)
[2019-08-22] MEDS ORDERED: LISINOPRIL 10 MG TABLET PO SCH (13:30)
[2019-08-22] MEDS ORDERED: MAGNESIUM HYDROXIDE SUSP 30 ML UDCUP PO PRN (14:24)
--- NOTE | 2019-08-22 18:06 | PDOC PROGRESS REPORT ---
Subjective Progress Note for:: 08/22/19 Subjective:: No adverse events overnight. No new complaints. Vital signs been stable. No fevers. Blood cultures remain negative. Appetite is good. Reason For Visit: BILATERAL ANTECUBITAL ABSCESSES Physical Exam Vital Signs: Temp Pulse Resp BP Pulse Ox 98.1 F 64 16 167/76 H 94 08/22/19 15:21 08/22/19 15:21 08/22/19 15:21 08/22/19 15:21 08/22/19 15:21 Intake & Output 08/21/19 08/22/19 08/23/19 06:59 06:59 06:59 Intake Total 3730 1820 418 Balance 3730 1820 418 Weight 114.6 kg 113.3 kg General appearance: PRESENT: no acute distress, cooperative, disheveled, morbidly obese Respiratory exam: PRESENT: clear to auscultation truman, symmetrical, unlabored. ABSENT: accessory muscle use, chest wall tenderness, crackles, prolonged expiratory phas, rales, retraction, rhonchi, tachypnea, wheezes Cardiovascular exam: PRESENT: RRR, +S1, +S2 Pulses: PRESENT: normal carotid pulses Vascular exam: PRESENT: normal capillary refill GI/Abdominal exam: PRESENT: normal bowel sounds, soft. ABSENT: distended, guarding, rebound, tenderness Extremities exam: PRESENT: other - She has bandages wrapped in Kerlix over the areas of the antecubital spaces that have undergone incision and drainage Musculoskeletal exam: PRESENT: normal inspection. ABSENT: deformity Neurological exam: PRESENT: alert, awake, oriented to person, oriented to place, oriented to time, oriented to situation Results Laboratory Results: 08/21/19 05:09 08/21/19 05:09 08/19/19 18:56 Arm - Injection Site Gram Stain - Final 08/19/19 18:56 Arm - Injection Site Wound Culture - Final Group C Beta Streptococcus Staphylococcus Aureus Klebsiella Pneumoniae 08/19/19 18:56 Arm - Injection Site Gram Stain - Final Impressions: Elbow X-Ray 08/18/19 10:44 IMPRESSION: Subcutaneous gas in the antecubital fossa of the left elbow. No radiopaque foreign body. No radiographic abnormality of the elbow joint or bones. Extremity Ultrasound 08/18/19 10:45 IMPRESSION: Bilateral antecubital fossa abscesses with air bubbles Assessment and Plan - Diagnosis (1) IVDU (intravenous drug user) Is this a current diagnosis for this admission?: Yes (2) bilateral antecubital fossa abscess Is this a current diagnosis for this admission?: Yes (3) Superficial thrombophlebitis of right upper extremity Is this a current diagnosis for this admission?: Yes - Plan Summary Summary: She continues on broad-spectrum antibiotic therapy. Fortunately, blood cultures are negative thus far. She underwent incision and drainage of the antecubital abscesses, and they are growing beta-hemolytic Streptococcus with Lancefield antigen group C along with MSSA. A third organism, a gram-negative, has also grown out of both wounds, and we are awaiting identification and susceptibility on that before determining her final antibiotic choice. Hopefully she will be able to go home on Keflex. - Time Time Spent with patient: 15-24 minutes
[2019-08-22] MEDS: DULOXETINE HCL 30 MG CAPSULE.DR PO SCH (21:35)
[2019-08-22] MEDS: LURASIDONE HCL 60 MG TABLET PO SCH (21:35)
[2019-08-22] MEDS: TRAZODONE HCL 50 MG TABLET PO SCH (21:36)
[2019-08-23] MEDS: VANCOMYCIN HCL 1,250 MG in DEXTROSE 5%-WATER 250 ML IV SCH ×2 (03:29→09:49)
[2019-08-23] MEDS: MORPHINE SULFATE 10 MG/ML INJ IV PRN ×2 (06:11→11:06)
[2019-08-23] MEDS: MEROPENEM 1 GM in NORMAL SALINE 50 ML IV SCH ×2 (06:12→14:50)
[2019-08-23] MEDS: NORMAL SALINE 1000 ML 1,000 ML IV PRN (09:54)
[2019-08-23] MEDS ORDERED: LISINOPRIL 10 MG TABLET PO SCH (10:00)
[2019-08-23 11:21] VITALS: BP 153/64
--- NOTE | 2019-08-23 19:04 | PDOC DISCHARGE SUMMARY ---
Impression - Admit/DC Date/PCP Admission Date/Primary Care Provider: 08/18/19 15:06 Discharge Date: 08/23/19 - Additional Information Resuscitation Status: Full Code Discharge Diet: Regular Discharge Activity: Activity As Tolerated Referrals: [facility] [Provider Group] - 08/29/19 1:15 pm () [facility] [Outside] - 09/02/19 10:30 am Prescriptions: Fluconazole [Diflucan 100 Mg Tablet] 100 mg PO Q72H #2 tablet Cephalexin Monohydrate [Keflex 250 mg Capsule] 250 mg PO Q6 #40 capsule Lisinopril [Prinivil 10 mg Tablet] 10 mg PO DAILY #30 tablet Home Medications: Duloxetine HCl [Cymbalta] 60 mg PO DAILY 08/18/19 Lurasidone HCl [Latuda] 30 mg PO DAILY 08/18/19 Trazodone HCl 100 mg PO QHS 08/18/19 Cephalexin Monohydrate [Keflex 250 mg Capsule] 250 mg PO Q6 #40 capsule 08/23/19 Fluconazole [Diflucan 100 Mg Tablet] 100 mg PO Q72H #2 tablet 08/23/19 Lisinopril [Prinivil 10 mg Tablet] 10 mg PO DAILY #30 tablet 08/23/19 History of Present Illiness History of Present Illness: Per H&P by Dr. Marie: DANII SHEIKH is a 43 year old female with a history of IV drug use who is from [place] and is here for some reason, and has been injecting cocaine. She injects in both antecubital spaces, her hands, her ankles and her feet. She noticed a swelling that started yesterday and her left arm and again today in her right arm. She has an area of redness on the right ankle but is not swollen. She is not been running a fever. She came to the emergency department to be evaluated and ultrasound confirmed that she has bilateral antecubital abscesses, and it also looks like she is got a superficial thrombosis in the median cubital vein on the right side. She will be started on antibiotics and surgery will be consulted. Hospital Course Hospital Course: The patient was admitted to the medical floor. Surgery was consulted; underwent incision and drainage of the antecubital abscesses by Dr. Hernandez on 08/19/2019. Wound cultures have grown group C beta strep, MSSA, and Klebsiella fortunately both sensitive to cephalosporins. Her blood cultures have remained negative. She is remained afebrile with normal WBCs and continued, daily, clinical improvement. Did discuss with surgery today prior to discharge; recommends daily wet-to-dry packing/dressing changes with follow-up in the [facility] in 1 week. The patient informs me that she lives at home with her brother and that between herself and her brother, she feels confident that she will be able to provide appropriate wound care. The patient is discharged home in stable condition. She is instructed on the importance of completing her antibiotic therapy. She is advised on how to complete daily dressing changes. She is instructed to follow-up with her primary care provider ([facility]) and with the [facility] within 1 week. She is encouraged to return to the emergency department as needed for concerning symptoms. Physical Exam Vital Signs: Temp Pulse Resp BP Pulse Ox 98.3 F 77 16 153/64 H 98 08/23/19 15:31 08/23/19 15:31 08/23/19 15:31 08/23/19 15:31 08/23/19 15:31 Intake & Output 08/22/19 08/23/19 08/24/19 06:59 06:59 06:59 Intake Total 1820 2458 658 Output Total 1 Balance 1820 2457 658 Weight 113.3 kg 112.2 kg General appearance: PRESENT: no acute distress, cooperative, disheveled, morbidly obese, well-developed, well-nourished Head exam: PRESENT: atraumatic, normocephalic Eye exam: PRESENT: conjunctiva pink, EOMI, PERRLA. ABSENT: scleral icterus Mouth exam: PRESENT: moist, tongue midline Respiratory exam: PRESENT: clear to auscultation truman, symmetrical, unlabored. ABSENT: rales, rhonchi, wheezes Cardiovascular exam: PRESENT: RRR, +S1, +S2. ABSENT: diastolic murmur, rubs, systolic murmur Pulses: PRESENT: normal dorsalis pedis pul Vascular exam: PRESENT: normal capillary refill Rectal exam: PRESENT: deferred Extremities exam: PRESENT: full ROM, other - She has bandages wrapped in Kerlix over the areas of the antecubital spaces that have undergone incision and drainage; no surrounding erythema or proximal edema. She does have trace, nonpitting edema, to her right hand.. ABSENT: calf tenderness, clubbing, pedal edema Neurological exam: PRESENT: alert, awake, oriented to person, oriented to place, oriented to time, oriented to situation, CN II-XII grossly intact. ABSENT: motor sensory deficit Psychiatric exam: PRESENT: appropriate affect, normal mood. ABSENT: homicidal ideation, suicidal ideation Skin exam: PRESENT: dry, intact, warm. ABSENT: cyanosis, rash Results Laboratory Results: WBC 6.6 10^3/uL (4.0-10.5) 08/21/19 05:09 RBC 3.97 10^6/uL (3.72-5.28) 08/21/19 05:09 Hgb 11.9 g/dL (12.0-15.5) L 08/21/19 05:09 Hct 34.1 % (36.0-47.0) L 08/21/19 05:09 MCV 86 fl (80-97) 08/21/19 05:09 MCH 29.9 pg (27.0-33.4) 08/21/19 05:09 MCHC 34.8 g/dL (32.0-36.0) 08/21/19 05:09 RDW 15.0 % (11.5-14.0) H 08/21/19 05:09 Plt Count 186 10^3/uL (150-450) 08/21/19 05:09 Lymph % (Auto) 11.1 % (13-45) L 08/18/19 10:00 Lyman % (Auto) 7.5 % (3-13) 08/18/19 10:00 Eos % (Auto) 0.9 % (0-6) 08/18/19 10:00 Baso % (Auto) 1.0 % (0-2) 08/18/19 10:00 Absolute Neuts (auto) 7.7 10^3/uL (1.7-8.2) 08/18/19 10:00 Absolute Lymphs (auto) 1.1 10^3/uL (0.5-4.7) 08/18/19 10:00 Absolute Monos (auto) 0.7 10^3/uL (0.1-1.4) 08/18/19 10:00 Absolute Eos (auto) 0.1 10^3/uL (0.0-0.6) 08/18/19 10:00 Absolute Basos (auto) 0.1 10^3/uL (0.0-0.2) 08/18/19 10:00 Seg Neutrophils % 79.5 % (42-78) H 08/18/19 10:00 Sodium 138.8 mmol/L (137-145) 08/21/19 05:09 Potassium 3.8 mmol/L (3.6-5.0) 08/21/19 05:09 Chloride 107 mmol/L (98-107) 08/21/19 05:09 Carbon Dioxide 27 mmol/L (22-30) 08/21/19 05:09 Anion Gap 5 (5-19) 08/21/19 05:09 BUN 5 mg/dL (7-20) L 08/21/19 05:09 Creatinine 0.67 mg/dL (0.52-1.25) 08/21/19 05:09 Est GFR ( Amer) > 60 (>60) 08/21/19 05:09 Est GFR (MDRD) Non-Af > 60 (>60) 08/21/19 05:09 Glucose 85 mg/dL (75-110) 08/21/19 05:09 Calcium 8.3 mg/dL (8.4-10.2) L 08/21/19 05:09 Total Bilirubin 1.1 mg/dL (0.2-1.3) 08/18/19 10:00 Direct Bilirubin 0.4 mg/dL (0.0-0.4) 08/18/19 10:00 Neonat Total Bilirubin Not Reportable 08/18/19 10:00 Neonat Direct Bilirubin Not Reportable 08/18/19 10:00 Neonat Indirect Bili Not Reportable 08/18/19 10:00 AST 44 U/L (14-36) H 08/18/19 10:00 ALT 31 U/L (<35) 08/18/19 10:00 Alkaline Phosphatase 87 U/L (38-126) 08/18/19 10:00 Total Protein 7.5 g/dL (6.3-8.2) 08/18/19 10:00 Albumin 4.2 g/dL (3.5-5.0) 08/18/19 10:00 Urine Color YELLOW 08/18/19 09:24 Urine Appearance CLEAR 08/18/19 09:24 Urine pH 6.0 (5.0-9.0) 08/18/19 09:24 Ur Specific [place] 1.006 08/18/19 09:24 Urine Protein NEGATIVE mg/dL (NEGATIVE) 08/18/19 09:24 Urine Glucose (UA) NEGATIVE mg/dL (NEGATIVE) 08/18/19 09:24 Urine Ketones 20 mg/dL (NEGATIVE) H 08/18/19 09:24 Urine Blood NEGATIVE (NEGATIVE) 08/18/19 09:24 Urine Nitrite NEGATIVE (NEGATIVE) 08/18/19 09:24 Urine Bilirubin NEGATIVE (NEGATIVE) 08/18/19 09:24 Urine Urobilinogen NEGATIVE mg/dL (<2.0) 08/18/19 09:24 Ur Leukocyte Esterase TRACE (NEGATIVE) H 08/18/19 09:24 Urine WBC (Auto) 5 /HPF 08/18/19 09:24 Urine RBC (Auto) 2 /HPF 08/18/19 09:24 Urine Bacteria (Auto) 1+ /HPF 08/18/19 09:24 Squamous Epi Cells Auto 3 /HPF 08/18/19 09:24 Urine Mucus (Auto) RARE /LPF 08/18/19 09:24 Urine Ascorbic Acid NEGATIVE (NEGATIVE) 08/18/19 09:24 Urine HCG, Qual NEGATIVE (NEGATIVE) 08/18/19 09:24 Time Trough Drawn 1746 08/19/19 17:46 Vancomycin Trough 9.2 ug/mL (5.0-20.0) 08/19/19 17:46 Urine Opiates Screen NEGATIVE 08/18/19 09:24 Urine Methadone Screen NEGATIVE 08/18/19 09:24 Ur Barbiturates Screen NEGATIVE 08/18/19 09:24 Ur Phencyclidine Scrn NEGATIVE 08/18/19 09:24 Ur Amphetamines Screen 08/18/19 09:24 U Benzodiazepines Scrn NEGATIVE 08/18/19 09:24 Urine Cocaine Screen UNCONFIRMED POSITIVE 08/18/19 09:24 U Marijuana (THC) Screen UNCONFIRMED POSITIVE 08/18/19 09:24 Impressions: Elbow X-Ray 08/18/19 10:44 IMPRESSION: Subcutaneous gas in the antecubital fossa of the left elbow. No radiopaque foreign body. No radiographic abnormality of the elbow joint or bones. Extremity Ultrasound 08/18/19 10:45 IMPRESSION: Bilateral antecubital fossa abscesses with air bubbles Plan Plan of Treatment: The patient is discharged home with self-care in stable condition. She is instructed to take her full course of antibiotic therapy. She is instructed on daily wet-to-dry dressing changes. She is advised to follow-up with the [facility] as scheduled. She is instructed to follow-up with [facility] within 1 week. She is encouraged to return to the emergency department as needed for concerning symptoms. Time Spent: Greater than 30 Minutes Stroke Is this a Stroke Patient?: No Acute Heart Failure - Is this a Heart Failure Patient?: No
== END 2019-08-23 15:55 | disposition home or self-care (01) | DRG 580 ==
LOC: ER 07:02 → EH 15:06 → 4W 18:28
PROVIDERS: ADMIT Family Medicine; ATTEND Family Medicine
PROC: 0X9C0ZX Drainage of Left Elbow Region, Open Approach, Diagnostic (ICD-10-PCS; 2019-08-19)
PROC: 0R9L0ZX Drainage of Right Elbow Joint, Open Approach, Diagnostic (ICD-10-PCS; 2019-08-19)
PROC: 0YJ Anatomical Regions, Lower Extremities, Inspection (ICD-10-PCS; principal; 2019-08-19 21:00)
DX: L02.414 Cutaneous abscess of left upper limb (principal); L02.415 Cutaneous abscess of right lower limb; L03.115 Cellulitis of right lower limb; I80.8 Phlebitis and thrombophlebitis of other sites; L02.413 Cutaneous abscess of right upper limb; E66.01 Morbid (severe) obesity due to excess calories; I10 Essential (primary) hypertension; F31.9 Bipolar disorder, unspecified; F17.200 Nicotine dependence, unspecified, uncomplicated; F14.10 Cocaine abuse, uncomplicated; B95.4 Other streptococcus as the cause of diseases classified elsewhere; B95.61 Methicillin susceptible Staphylococcus aureus infection as the cause of diseases classified elsewhere; B96.1 Klebsiella pneumoniae [K. pneumoniae] as the cause of diseases classified elsewhere; Z88.6 Allergy status to analgesic agent; Z88.8 Allergy status to other drugs, medicaments and biological substances
CPT/HCPCS: 36415; 400; 76882; 80048; 80053; 80202; 80307; 81001; 81025; 85025; 85027; 87040; 87070; 87075; 87077; 87186; 87205; 93005; 93010; 96365; 96375; 99285; J0131; J1885; J2185; J2250; J2270; J2543; J2704; J3010; J3370; J3490; J7030; J7060; Q9968

== ENCOUNTER 2019-10-11 12:33 | Emergency (ER) | payer SELFPAY ==
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
[2019-10-11 12:55] VITALS: BP 136/89
--- NOTE | 2019-10-11 13:27 | PSYCHOLOGICAL NOTE ---
Psych Note - Psych Note Date seen by psych provider: 10/11/19 Time seen by psych provider: 14:15 Psych Note: Reason for Consult: Suicidal ideation Clinician spoke with Shadia of [facility]. Patient showed up to [facility] but because of no insurance she was referred to [facility]. Patient received inpatient treatment for 5 days and discharged today 10/11/2019 approximately 30 minutes ago. Presentation euthymic with appropriate engagement until discussion of discharge yesterday, patient attempted to sabotage reporting suicidal ideation. However, this morning she denied suicidal and homicidal ideation and had a plan to follow up her niece that has some of the patient's property and outpatient mental health services with [facility] on October at 1000. She was on medications while inpatient and discharged with 30 day prescriptions of Cymbalta 60mg every evening and Lamictal 25mg daily called in to [facility]. Patient reports she has had thoughts of harming herself for 3 weeks that are getting overwhelming. She states she stopped her lamictal 5 weeks ago. She confirms she was a [facility] for "about 4 days" and was restarted on her medications. She reports she is "hoping for a few more days...I don't know why they just discharged me, i told them yesterday I was still having thoughts." She confirms she has no where to go as she is homeless since she was kicked out of her father's house. She was kicked out after staling money for drugs. She reports she is angry at her brother because he was in on the stealing also but he is still living in their father's house. she confirms her prescriptions are at the pharmacy but she is unable to pay for them. When asked how she had planed to pay for them when being discharged from [facility], she reports she could ask her mother for help but her mother is unable to help her get back to [place]. She confirms she can still ask her mother. She confirms she would like assistance with possible bed in the long term. Patient is alert and orientated to person, place time and circumstance. She rep orts passive suicidal ideation ie no plan means or intent and confirms being discharged today from inpatient psychiatric treatment. Delusions are absent and behaviour is congruent with an intact reality base presentation ie organized and linear thought processes. Eye contact is well maintained. attention and concentration is good. insight, judgment and impulse control is current good. Clinician notes thought content is focused on going back inpatient after being discharged today from [facility] after 5 days. Impression/plan: patient is cleared from acute psychiatric services. Patient AMA after talking to physician. she reportedly became upset when finding out she would not be going inpatient again for further treatment. Going inpatient again would not be therapeutic as she has already been restarted on her medication and no longer needs medication stabilization. Therapeutically the patient needs to go through outpatient mental health services for therapy and medication management. Patient left before any assistance for long term placement or resource lists could be given. Dr. Rai was consulted on the care and management of this patient; attending physician is in agreement with recommendations an disposition.
[2019-10-11 13:51] LABS: APPEARANCE,URINE CLEAR; BILIRUBIN,URINE NEGATIVE (NEGATIVE); COLOR,URINE STRAW; GLUCOSE, URINE NEGATIVE (NEGATIVE); KETONES,URINE NEGATIVE (NEGATIVE); LEUKOCYTE ESTERASE,URINE NEGATIVE (NEGATIVE); NITRITE,URINE NEGATIVE (NEGATIVE); PROTEIN,URINE NEGATIVE (NEGATIVE); URINE SPECIFIC GRAVITY 1.006; UROBILINOGEN,URINE NEGATIVE mg/dL (<2.0)
[2019-10-11 13:54] LABS: ABSOLUTE EOSINOPHILS # (AUTO) 0.2 10^3/uL (0.0-0.6); ABSOLUTE LYMPHOCYTES (AUTO) 1.8 10^3/uL (0.5-4.7); ABSOLUTE MONOCYTES (AUTO) 0.4 10^3/uL (0.1-1.4); ABSOLUTE NEUT (AUTO) 4.1 10^3/uL (1.7-8.2); BASOPHILS % (AUTO) 0.4 % (0-2); EOSINOPHILS % (AUTO) 2.6 % (0-6); HEMATOCRIT 41.5 % (36.0-47.0); HEMOGLOBIN 14.7 g/dL (12.0-15.5); LYMPHOCYTES % (AUTO) 28.3 % (13-45); MEAN CORPUSCULAR HEMOGLOBIN 30.4 pg (27.0-33.4); MEAN CORPUSCULAR HGB CONC 35.3 g/dL (32.0-36.0); MEAN CORPUSCULAR VOLUME 86 fl (80-97); MONOCYTES % (AUTO) 5.9 % (3-13); PLATELET COUNT 240 10^3/uL (150-450); RED BLOOD COUNT 4.82 10^6/uL (3.72-5.28); RED CELL DISTRIBUTION WIDTH 13.9 % (11.5-14.0); SEGMENTED NEUTROPHILS % (AUTO) 62.8 % (42-78); TOTAL CELLS COUNTED % (AUTO) 100 %; WHITE BLOOD COUNT 6.5 10^3/uL (4.0-10.5)
[2019-10-11 14:12] LABS: ALBUMIN 4.5 g/dL (3.5-5.0); ALKALINE PHOSPHATASE 71 U/L (38-126); ANION GAP 8 (5-19); ASPARTATE AMINO TRANSFERASE 33 U/L (14-36); BILIRUBIN,DIRECT 0.1 mg/dL (0.0-0.4); BILIRUBIN,TOTAL 0.5 mg/dL (0.2-1.3); BLOOD UREA NITROGEN 14 mg/dL (7-20); CALCIUM 9.6 mg/dL (8.4-10.2); CARBON DIOXIDE 24 mmol/L (22-30); CHLORIDE 105 mmol/L (98-107); GLUCOSE 87 mg/dL (75-110); POTASSIUM 4.7 mmol/L (3.6-5.0); TOTAL PROTEIN 7.8 g/dL (6.3-8.2)
[2019-10-11 14:13] LABS: ACETAMINOPHEN < 10 ug/mL (10-30); ALCOHOL < 10 mg/dL (NONE DETECTED); SALICYLATE < 1.0 mg/dL (2.0-20.0); URINE AMPHETAMINES SCREEN NEGATIVE; URINE BARBITURATES SCREEN NEGATIVE; URINE BENZODIAZEPINES SCREEN NEGATIVE; URINE COCAINE SCREEN NEGATIVE; URINE MARIJUANA (THC) SCREEN NEGATIVE; URINE METHADONE SCREEN NEGATIVE; URINE PHENCYCLIDINE SCREEN NEGATIVE
--- NOTE | 2019-10-11 15:47 | ER Document Report ---
ED General - General Chief Complaint: Psych Problem Stated Complaint: PSYCH EVAL/SUICIDAL IDEATION Time Seen by Provider: 10/11/19 12:38 Mode of Arrival: Ambulatory Information source: Patient TRAVEL OUTSIDE OF THE [place] IN LAST 30 DAYS: No - HPI Notes: Patient presents stating that she is depressed and suicidal. She states that she just was discharged approximately 30 minutes ago from [facility]. She stayed there for 5 days due to depression and suicidal ideation. She states that she told them she was still thinking of wanting to hurt her self however she was discharged. She states that she is wanting to hurt her self because when she called her father her father stated that she could not come back there to stay and she has nowhere to go. She states that her father said this because she stole money from him to use cocaine several days ago. She states that her mom lives in [place]. Patient states she is thinking of running a car into a tree. She states she has 1 previous suicide attempt 10 years ago when she took 10 Klonopin approximately. Patient denies any auditory or visual hallucinations. Patient symptoms are mild. They are made worse with stress and better without. There is no radiation of the symptoms. They appear to be constant. - Related Data Allergies/Adverse Reactions: tramadol [Tramadol] Allergy (Mild, Verified 08/18/19 07:37) Hives clindamycin [Clindamycin] Allergy (Verified 08/18/19 07:37) Home Medications: Been off meds for 1 month Past Medical History - General Information source: Patient - Social History Smoking Status: Current Every Day Smoker Frequency of alcohol use: Occasional Drug Abuse: Cocaine Family History: Malignancy - ovarian cancer- mother Patient has suicidal ideation: Yes Patient has homicidal ideation: Yes - Past Medical History Cardiac Medical History: Reports: Hx Hypertension Psychiatric Medical History: Reports: Hx Bipolar Disorder, Hx Depression Past Surgical History: Reports: Hx Abdominal Surgery - gastric sleeve, Hx Gynecologic Surgery - Benign tumor removal from left overy, Hx Hysterectomy - complete, Hx Orthopedic Surgery - bilat carpal tunnel - Immunizations Hx Diphtheria, Pertussis, Tetanus Vaccination: Yes Review of Systems - Review of Systems Constitutional: denies: Chills, Fever Cardiovascular: denies: Chest pain, Palpitations Respiratory: denies: Cough, Short of breath -: Yes All other systems reviewed and negative Physical Exam - Vital signs Vitals: Temp Pulse Resp BP Pulse Ox 97.8 F 71 20 136/89 H 100 10/11/19 12:38 10/11/19 12:38 10/11/19 12:38 10/11/19 12:38 10/11/19 12:38 Interpretation: Normal - General General appearance: Appears well, Alert - HEENT Head: Normocephalic, Atraumatic Eyes: Normal Pupils: PERRL - Respiratory Respiratory status: No respiratory distress Chest status: Nontender Breath sounds: Normal Chest palpation: Normal - Cardiovascular Rhythm: Regular Heart sounds: Normal auscultation Murmur: No - Abdominal Inspection: Normal Distension: No distension Bowel sounds: Normal Tenderness: Nontender Organomegaly: No organomegaly - Back Back: Normal, Nontender - Extremities General upper extremity: Normal inspection, Nontender, Normal color, Normal ROM, Normal temperature General lower extremity: Normal inspection, Nontender, Normal color, Normal ROM, Normal temperature, Normal weight bearing. No: Susan's sign - Neurological Neuro grossly intact: Yes Cognition: Normal Orientation: AAOx4 Erhard Coma Scale Eye Opening: Spontaneous Eren Coma Scale Verbal: Oriented Erhard Coma Scale Motor: Obeys Commands Eren Coma Scale Total: 15 Speech: Normal Motor strength normal: LUE, RUE, LLE, RLE Sensory: Normal - Psychological Associated symptoms: Normal affect, Normal mood - Skin Skin Temperature: Warm Skin Moisture: Dry Skin Color: Normal Course - Re-evaluation Re-evalutation: 10/11/19 15:44 Patient presents stating that she is thinking of hurting herself and depressed because she has nowhere to stay. This was after being discharged approxi-30 minutes ago from a 5-day stay in a psychiatric facility. She states she has nowhere to stay because her father will not let her returns and she still money from him for drug several days ago. Her mother does not live in the area. She states she is also upset because her brother also stole money but he gets to stay and she is not allowed. I think patient has some situational depression but do not believe the patient is actively suicidal. I do not think the patient would benefit from further inpatient care since she just finished a 5-day inpatient course. We are going to attempt to arrange for the patient to be able to go to the residential. . 10/11/19 15:46 - Vital Signs Vital signs: Temp Pulse Resp BP Pulse Ox 97.8 F 71 20 136/89 H 100 10/11/19 12:38 10/11/19 12:38 10/11/19 12:38 10/11/19 12:38 10/11/19 12:38 - Laboratory Result Diagrams: 10/11/19 13:00 10/11/19 13:00 Laboratory results interpreted by me: 10/11/19 13:00 Sodium 136.7 L Salicylates < 1.0 L Acetaminophen < 10 L Discharge - Discharge Clinical Impression: IVDU (intravenous drug user) Depression Qualifiers: Depression Type: reactive depression Qualified Code(s): F32.9 - Major depressive disorder, single episode, unspecified Condition: Stable Disposition: HOME, SELF-CARE Instructions: Depression ([facility]), Suicidal Ideation ([facility]), Cocaine Abuse ([facility]) Additional Instructions: Please call your primary care doctor as well as your primary psychiatrist or psychologist as soon as possible. Referrals: [facility] [Provider Group] - Follow up tomorrow
--- NOTE | 2019-10-11 16:22 | EKG REPORT ---
SEVERITY:- NORMAL ECG - SINUS RHYTHM : Confirmed by: Erick Velasquez 11-Oct-2019 16:21:27
== END 2019-10-11 16:13 | disposition home or self-care (01) ==
LOC: ER 12:33
DX: F32.9 Major depressive disorder, single episode, unspecified (principal); F14.10 Cocaine abuse, uncomplicated; R45.850 Homicidal ideations; F17.200 Nicotine dependence, unspecified, uncomplicated; I10 Essential (primary) hypertension; Z91.5 Personal history of self-harm; Z98.84 Bariatric surgery status; Z59.0 Homelessness; Z88.6 Allergy status to analgesic agent; Z88.1 Allergy status to other antibiotic agents
CPT/HCPCS: 36415; 80053; 80307; 81001; 84703; 85025; 93005; 93010; 99285